=== PATIENT | male | born 1995 | race Caucasian/White ===

== ENCOUNTER 2022-12-02 15:42 | Emergency (ER) | payer MEDICAID, OTHER ==
[~2022-12-02] VITALS: Ht 172.7 cm; Wt 99.8 kg
[2022-12-02] MEDS ORDERED: NS 1,000 ML IV ONE (17:00)
[2022-12-02] MEDS ORDERED: ONDANSETRON 4MG 2ML VIAL IV ONE (17:00)
[2022-12-02 17:19] LABS: BASO # 0.1 10^3/uL (0.0-0.2); BASO % 0.4 % (0.0-1.0); HEMATOCRIT 49.6 % (42.0-52.0); HEMOGLOBIN 17.3 g/dl (13.5-17.5); LYMPH # 1.2 10^3/uL (1.5-5.0); LYMPH % 7.8 % (24.0-44.0); MEAN CORPUSCULAR HEMOGLOBIN 31.6 pg (27.0-33.0); MEAN CORPUSCULAR HGB CONC 34.9 g/dl (32.0-36.5); MEAN CORPUSCULAR VOLUME 90.5 fl (80.0-96.0); MONO # 0.4 10^3/uL (0.0-0.8); MONO % 2.9 % (2.0-8.0); NEUTROPHILS # 12.8 10^3/uL (1.5-8.5); NEUTROPHILS % 87.4 % (36.0-66.0); PLATELET COUNT, AUTOMATED 222 10^3/uL (150-450); RED BLOOD COUNT 5.48 10^6/uL (4.30-6.10); WHITE BLOOD COUNT 14.7 10^3/uL (4.0-10.0)
[2022-12-02 17:48] LABS: ETHYL ALCOHOL (ETHANOL) 0.003 % (0.000-0.010)
[2022-12-02 17:50] LABS: ALBUMIN 4.6 G/DL (3.2-5.2); BILIRUBIN,DIRECT 0.5 MG/DL (<0.4); BILIRUBIN,TOTAL 1.2 MG/DL (0.3-1.2); MB/CK RELATIVE INDEX 2.89 (< OR =4)
[2022-12-02] MEDS ORDERED: ONDA4TAB6 PO (18:18)
[2022-12-02 18:29] VITALS: BP 140/86
== END 2022-12-02 18:31 | disposition home or self-care (01) ==
LOC: M ED 16:11
DX: F10.129 Alcohol abuse with intoxication, unspecified (principal); E86.0 Dehydration
CPT/HCPCS: 80047; 80076; 82077; 82550; 82553; 83690; 85025; 93005; 96361; 96374; 99284; J2405